=== PATIENT | male | born 2000 | race Caucasian/White ===

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

== ENCOUNTER 2018-12-14 09:07 | Outpatient (CLI) | payer OTHER ==
--- NOTE | 2018-12-15 11:26 | XRAY Report ---
Reason: LOCALIZED SWELLING Procedure Date: 12/14/2018 Accession Number: [id number] / [id number] Procedure: XRN - Hand 3 View RT CPT Code: FULL RESULT: EXAM: RIGHT HAND RADIOGRAPHY EXAM DATE: 12/14/2018 09:28 AM. CLINICAL HISTORY: LOCALIZED SWELLING right index finger. COMPARISON: None. TECHNIQUE: 3 views. FINDINGS: Bones: Normal. No fractures or bone lesions. Joints: Normal. No subluxations. Soft Tissues: Normal. No soft tissue swelling. IMPRESSION: Normal right hand radiography. [facility]
== END 2018-12-14 09:08 | disposition home or self-care (01) ==
LOC: DI.N 09:07
PROVIDERS: ATTEND Family Medicine
DX: R22.31 Localized swelling, mass and lump, right upper limb (principal)

== ENCOUNTER 2019-02-14 07:16 | Outpatient (CLI) | payer OTHER ==
--- NOTE | 2019-02-14 09:57 | MRI Report ---
Reason: LOCALIZED SWELLING ON RT HAND Procedure Date: 02/14/2019 Accession Number: [id number] / [id number] Procedure: MRI - Hand RT W/O CPT Code: Final Report FULL RESULT: EXAM: RIGHT HAND MRI WITHOUT CONTRAST EXAM DATE: 02/14/2019 07:39 AM. CLINICAL HISTORY: LOCALIZED SWELLING ON RT HAND. COMPARISON: HAND 3 VIEW RT 12/14/2018 9:34 AM. TECHNIQUE: Multiplanar, multisequence T1-weighted and fluid-sensitive sequences of the hand without contrast. Other: None. FINDINGS: Bones: No fractures or subluxations. No marrow edema. No bone lesions. Cartilage: The articular cartilage is unremarkable. Ligaments: The visualized collateral ligaments are intact. Tendons: The flexor and extensor tendons are unremarkable. Musculature: No edema or fatty atrophy. Other: A skin marker was placed over the palpable abnormality. The marker overlies the volar aspect of the base of the index finger slightly to the ulnar side of midline. Immediately subjacent to the marker is a homogeneously T2 hyperintense structure along the ulnar margin of the flexor tendon sheath to the index finger located at the level of the proximal metadiaphyseal junction. This structure measures 7 x 5 x 9 mm. Characterization of this lesion is limited by noncontrast technique, specifically the ability to assess whether this is a cystic lesion or a solid lesion; however, a cyst is favored, and this is probably a ganglion cyst arising from the flexor tendon sheath. A solid lesion such as a nerve sheath tumor is possible but probably less likely. Soft tissues elsewhere are normal. IMPRESSION: 1. 9 mm homogeneously T2 hyperintense nodular lesion along the ulnar margin of the flexor tendon sheath to the index finger at the level of the proximal metadiaphyseal junction of the proximal phalanx. Though characterization of this lesion and specifically whether this is a cystic or solid lesion is limited by noncontrast technique, a cystic lesion is favored and this is probably a ganglion cyst. A solid lesion such as a nerve sheath tumor cannot be completely excluded but is less likely. [facility]
== END 2019-02-14 07:17 | disposition home or self-care (01) ==
LOC: DI 07:16
PROVIDERS: ATTEND Orthopaedic Surgery Sports Medicine
DX: R22.31 Localized swelling, mass and lump, right upper limb (principal)

== ENCOUNTER 2021-05-06 08:00 | Outpatient (CLI) | payer OTHER ==
[2021-05-06 17:59] LABS: BASOPHILS # (AUTO) 0.1 10^3/uL (0.0-0.1); EOSINOPHILS # (AUTO) 0.2 10^3/uL (0.0-0.7); EOSINOPHILS % (AUTO) 2.8 %; HCT - HEMATOCRIT 42.4 % (42.0-52.0); HGB - HEMOGLOBIN 14.4 g/dL (14.0-18.0); LYMPHOCYTES # (AUTO) 1.9 10^3/uL (1.5-3.5); LYMPHOCYTES % (AUTO) 24.9 %; MEAN CORPUSCULAR HEMOGLOBIN 31.9 pg (27.0-31.0); MEAN CORPUSCULAR VOLUME 93.8 fL (80.0-94.0); MEAN PLATELET VOLUME 11.2 fL (7.4-11.4); MONOCYTES # (AUTO) 0.8 10^3/uL (0.0-1.0); MONOCYTES % (AUTO) 9.8 %; NEUTROPHILS # (AUTO) 4.8 10^3/uL (1.5-6.6); NEUTROPHILS % (AUTO) 61.2 %; PLT - PLATELET COUNT 290 10^3/uL (130-450); RED BLOOD COUNT 4.52 10^6/uL (4.70-6.10); RED CELL DISTRIBUTION WIDTH 11.7 % (12.0-15.0); WHITE BLOOD COUNT 7.8 x10^3/uL (4.8-10.8)
[2021-05-06 18:35] LABS: ALBUMIN 4.9 g/dL (3.2-5.5); ALBUMIN/GLOBULIN RATIO 1.5 (1.0-2.2); ALKALINE PHOSPHATASE 58 IU/L (42-121); ALT ALANINE AMINOTRANSFERASE 26 IU/L (10-60); AST ASPARTATE AMINOTRANSFERASE 22 IU/L (10-42); BILIRUBIN,TOTAL 1.3 mg/dL (0.2-1.0); BUN - BLOOD UREA NITROGEN 19 mg/dL (6-20); CALCIUM 9.7 mg/dL (8.5-10.3); CARBON DIOXIDE - CO2 27 mmol/L (21-32); CHLORIDE 102 mmol/L (101-111); CHOL/HDL RATIO 3.4 (<5.0); CHOLESTEROL 192 mg/dL; CREATININE 0.9 mg/dL (0.6-1.2); GFR - MDRD 106 (>89); GLUCOSE 87 mg/dL (70-100); HDL CHOLESTEROL 56 mg/dL; POTASSIUM 4.3 mmol/L (3.5-5.0); SODIUM 138 mmol/L (135-145); TOTAL PROTEIN 8.1 g/dL (6.7-8.2); TRIGLYCERIDES 37 mg/dL
[2021-05-06 18:37] LABS: THYROID STIMULATING HORMONE 0.88 uIU/mL (0.34-5.60)
== END 2021-05-06 23:59 ==
LOC: LAB.WCP 08:00
PROVIDERS: ATTEND Physician Assistant
DX: Z00.00 Encounter for general adult medical examination without abnormal findings (principal)
CPT/HCPCS: 36415; 80053; 80061; 83721; 84443; 85025

== ENCOUNTER 2022-09-17 08:11 | Outpatient (CLI) | payer OTHER ==
[2022-09-17 12:19] LABS: BASOPHILS # (AUTO) 0.1 10^3/uL (0.0-0.1); BASOPHILS % (AUTO) 1.7 %; EOSINOPHILS # (AUTO) 0.8 10^3/uL (0.0-0.7); EOSINOPHILS % (AUTO) 13.2 %; HCT - HEMATOCRIT 44.6 % (42.0-52.0); HGB - HEMOGLOBIN 15.1 g/dL (14.0-18.0); LYMPHOCYTES % (AUTO) 33.1 %; MEAN CORPUSCULAR HEMOGLOBIN 32.1 pg (27.0-31.0); MEAN CORPUSCULAR HGB CONC 33.9 g/dL (32.0-36.0); MEAN CORPUSCULAR VOLUME 94.9 fL (80.0-94.0); MEAN PLATELET VOLUME 11.2 fL (7.4-11.4); MONOCYTES # (AUTO) 0.6 10^3/uL (0.0-1.0); MONOCYTES % (AUTO) 10.3 %; NEUTROPHILS # (AUTO) 2.5 10^3/uL (1.5-6.6); NEUTROPHILS % (AUTO) 41.4 %; PLT - PLATELET COUNT 246 10^3/uL (130-450); RED CELL DISTRIBUTION WIDTH 11.9 % (12.0-15.0); WHITE BLOOD COUNT 5.9 x10^3/uL (4.8-10.8)
[2022-09-17 12:24] LABS: ALBUMIN 4.5 g/dL (3.2-5.5); ALBUMIN/GLOBULIN RATIO 1.3 (1.0-2.2); ALKALINE PHOSPHATASE 56 IU/L (42-121); ALT ALANINE AMINOTRANSFERASE 20 IU/L (10-60); AST ASPARTATE AMINOTRANSFERASE 23 IU/L (10-42); BUN - BLOOD UREA NITROGEN 18 mg/dL (6-20); CALCIUM 9.4 mg/dL (8.5-10.3); CARBON DIOXIDE - CO2 29 mmol/L (21-32); CHLORIDE 103 mmol/L (101-111); CHOL/HDL RATIO 3.5 (<5.0); CHOLESTEROL 176 mg/dL; GFR - MDRD 92 (>89); GLUCOSE 95 mg/dL (70-100); HDL CHOLESTEROL 50 mg/dL; LDL CHOLESTEROL,CALCULATED 101 mg/dL; POTASSIUM 4.6 mmol/L (3.5-5.0); SODIUM 138 mmol/L (135-145); TOTAL PROTEIN 8.1 g/dL (6.7-8.2); TRIGLYCERIDES 125 mg/dL; VLDL CHOLESTEROL 25 mg/dL
[2022-09-17 12:37] LABS: THYROID STIMULATING HORMONE 1.99 uIU/mL (0.34-5.60)
[2022-09-18 16:08] LABS: FREE TESTOSTERONE(DIRECT) 16.4 pg/mL (9.3-26.5)
== END 2022-09-17 08:12 | disposition home or self-care (01) ==
LOC: LAB.N 08:11
PROVIDERS: ATTEND Physician Assistant
DX: N52.9 Male erectile dysfunction, unspecified (principal); Z13.9 Encounter for screening, unspecified
CPT/HCPCS: 36415; 80053; 80061; 83721; 84402; 84403; 84443; 85025